=== PATIENT | female | born 1945 | race African-American/Black ===

== ENCOUNTER 2020-01-11 23:04 | Inpatient (IN) | payer MEDICARE, OTHER ==
[~2020-01-11] VITALS: Ht 154.9 cm; Wt 69.9 kg
[2020-01-11] MEDS ORDERED: SODIUM CHLORIDE 0.9% 500 ML IV ONE (23:15)
[2020-01-11] MEDS ORDERED: IOHEXOL-300 100 ML BOTTLE ONE (23:31)
[2020-01-12] MEDS ORDERED: ASPIRIN 325MG TABLET PO ONE (00:15)
[2020-01-12 00:29] LABS: PROTHROMBIN TIME 10.4 sec (9.6-11.0)
[2020-01-12] MEDS ORDERED: ASPIRIN 81MG TABLET PO ONE (00:30)
[2020-01-12 00:31] LABS: BASOPHILS % 0.3 % (0.0-2.0); EOSINOPHILS % 1.4 % (0.0-5.0); HEMATOCRIT. 38.5 % (36.0-48.0); HEMOGLOBIN. 12.9 g/dL (12.0-16.0); LYMPHOCYTES % 19.8 % (20.0-50.0); MEAN CORPUSCULAR HEMOGLOBIN 29.4 pg (28.0-32.0); MEAN CORPUSCULAR VOLUME 87.9 fL (81.0-99.0); MEAN PLATELET VOLUME 8.9 fl (7.4-10.4); MONOCYTES % 7.3 % (2.0-8.0); NEUTROPHILS % 71.2 % (40.0-76.0); PLATELET 230 x1000/uL (130-400); RED BLOOD CELL COUNT 4.39 mill/uL (4.2-5.4); RED CELL DISTRIBUTION WIDTH 14.5 % (11.6-14.6)
[2020-01-12 00:34] LABS: CHLORIDE 108 mEq/L (98-107)
[2020-01-12 02:00] LABS: CLARITY URINE CLEAR (CLEAR); COLOR URINE YELLOW (YELLOW); KETONES URINE NEGATIVE (NEGATIVE); LEUKOCYTE ESTERASE URINE 1+ (NEGATIVE); NITRITE URINE NEGATIVE (NEGATIVE); OCCULT BLOOD URINE NEGATIVE (NEGATIVE); PH URINE 7.5 (4.5-8.0); PROTEIN URINE NEGATIVE (NEGATIVE); SPECIFIC GRAVITY URINE 1.008 (1.005-1.030); UROBILINOGEN URINE 0.2 E.U./dL (0.2-1.0)
[2020-01-12] MEDS: BLOOD SUGAR DIAGNOSTIC STRIP TEST SCH ×2 (06:22→20:18)
[2020-01-12] MEDS ORDERED: ACETAMINOPHEN 650MG/20.3ML UDC GT PRN ×2 (09:45)
[2020-01-12] MEDS ORDERED: HYDROCODONE/ACETAMINOPHEN 5/325MG TABLET PO PRN (09:45)
[2020-01-12] MEDS ORDERED: DOCUSATE SODIUM 100MG CAPSULE PO PRN (09:45)
[2020-01-12] MEDS ORDERED: NA PHOS,M-B/NA PHOS,DI-BA ENEMA 118ML PR PRN (09:45)
[2020-01-12] MEDS ORDERED: ONDANSETRON HCL 4MG/2ML INJ IV PRN (09:45)
[2020-01-12] MEDS ORDERED: GUAIFENESIN 200MG/10ML SUGAR FREE UDC PO PRN (09:45)
[2020-01-12] MEDS ORDERED: ACETAMINOPHEN 650MG SUPP PR PRN (09:45)
[2020-01-12] MEDS ORDERED: ACETAMINOPHEN 325MG TABLET PO PRN ×2 (09:45)
[2020-01-12] MEDS ORDERED: MAGNESIUM/ALUMINUM HYDROXIDE/SIMETHICONE 30ML UDC PO PRN (09:45)
[2020-01-12] MEDS ORDERED: ASPIRIN 81MG TABLET PO SCH (10:00)
[2020-01-12] MEDS ORDERED: PHENYTOIN SODIUM EXTENDED 100MG CAPSULE PO NR (10:15)
[2020-01-12] MEDS ORDERED: DEXTROSE 50% WATER 50ML SYRINGE IV PRN (17:00)
[2020-01-12 19:24] LABS: BASOPHILS % 0.7 % (0.0-2.0); HEMATOCRIT. 40.4 % (36.0-48.0); HEMOGLOBIN. 13.5 g/dL (12.0-16.0); LYMPHOCYTES % 26.1 % (20.0-50.0); MEAN CORPUSCULAR HEMOGLOBIN 29.3 pg (28.0-32.0); MEAN CORPUSCULAR VOLUME 88.1 fL (81.0-99.0); MEAN PLATELET VOLUME 8.9 fl (7.4-10.4); MONOCYTES % 8.1 % (2.0-8.0); NEUTROPHILS % 63.1 % (40.0-76.0); PLATELET 227 x1000/uL (130-400); RED BLOOD CELL COUNT 4.59 mill/uL (4.2-5.4); RED CELL DISTRIBUTION WIDTH 14.4 % (11.6-14.6)
[2020-01-12 19:29] LABS: CHLORIDE 112 mEq/L (98-107)
[2020-01-12 19:35] LABS: PHOSPHORUS 2.2 mg/dL (2.5-4.9)
[2020-01-12 19:36] LABS: CREATINE KINASE 73 IU/L (26-192); CREATINE KINASE MB FRACTION < 1.0 ng/mL (0.5-3.6)
[2020-01-12 20:17] LABS: *AMPHETAMINES SCREEN URINE NEGATIVE (NEGATIVE); *BARBITURATES SCREEN URINE NEGATIVE (NEGATIVE); *BENZODIAZEPINES SCREEN URINE NEGATIVE (NEGATIVE)
[2020-01-12 20:18] LABS: *COCAINE SCREEN URINE NEGATIVE (NEGATIVE); CANNABINOID URINE SCREEN NEGATIVE (NEGATIVE); METHADONE URINE SCREEN NEGATIVE (NEGATIVE); OPIATES URINE SCREEN NEGATIVE (NEGATIVE); PHENCYCLIDINE URINE SCREEN NEGATIVE (NEGATIVE)
[2020-01-12] MEDS: PHENYTOIN SODIUM EXTENDED 100MG CAPSULE PO SCH (23:43)
[2020-01-13 01:13] VITALS: BP 148/65
[2020-01-13 01:15] LABS: CREATINE KINASE 98 IU/L (26-192)
[2020-01-13 01:20] LABS: CREATINE KINASE MB FRACTION < 1.0 ng/mL (0.5-3.6)
[2020-01-13] MEDS ORDERED: CALC-3 PO (03:51)
[2020-01-13] MEDS ORDERED: ASPI-1497 PO (03:51)
[2020-01-13] MEDS ORDERED: PHEN300C6 PO (03:51)
[2020-01-13] MEDS ORDERED: DICL50TA9 PO (03:51)
[2020-01-13 04:00] VITALS: BP 123/60
[2020-01-13 05:45] LABS: BASOPHILS % 0.6 % (0.0-2.0); EOSINOPHILS % 2.7 % (0.0-5.0); HEMATOCRIT. 38.3 % (36.0-48.0); HEMOGLOBIN. 12.8 g/dL (12.0-16.0); LYMPHOCYTES % 33.8 % (20.0-50.0); MEAN CORPUSCULAR HEMOGLOBIN 29.1 pg (28.0-32.0); MEAN CORPUSCULAR VOLUME 87.3 fL (81.0-99.0); MEAN PLATELET VOLUME 9.1 fl (7.4-10.4); MONOCYTES % 9.8 % (2.0-8.0); NEUTROPHILS % 53.1 % (40.0-76.0); PLATELET 230 x1000/uL (130-400); RED BLOOD CELL COUNT 4.39 mill/uL (4.2-5.4); RED CELL DISTRIBUTION WIDTH 14.7 % (11.6-14.6)
[2020-01-13 06:19] LABS: CHLORIDE 111 mEq/L (98-107)
[2020-01-13] MEDS: PHENYTOIN SODIUM EXTENDED 100MG CAPSULE PO SCH ×3 (06:22→21:09)
[2020-01-13 06:27] LABS: LDL CHOLESTEROL 153 mg/dL (5-100)
[2020-01-13 06:31] LABS: HDL CHOLESTEROL 85 mg/dL (40-59)
[2020-01-13] MEDS: BLOOD SUGAR DIAGNOSTIC STRIP TEST SCH ×4 (06:44→21:09)
[2020-01-13 08:00] VITALS: BP 131/57
[2020-01-13] MEDS: ASPIRIN 81MG TABLET PO SCH (09:26)
[2020-01-13 12:00] VITALS: BP 127/59
[2020-01-13 16:00] VITALS: BP 118/54
[2020-01-13 20:00] VITALS: BP 134/49
[2020-01-13] MEDS ORDERED: ATORVASTATIN CALCIUM 20MG TABLET PO SCH (21:00)
[2020-01-14] VITALS: BP 155/55
[2020-01-14 04:00] VITALS: BP 135/59
[2020-01-14] MEDS: BLOOD SUGAR DIAGNOSTIC STRIP TEST SCH ×3 (05:56→16:45)
[2020-01-14] MEDS: PHENYTOIN SODIUM EXTENDED 100MG CAPSULE PO SCH ×2 (05:57→13:39)
[2020-01-14 08:00] VITALS: BP 133/70
[2020-01-14] MEDS: ASPIRIN 81MG TABLET PO SCH (08:43)
[2020-01-14 12:00] VITALS: BP 126/54
[2020-01-14] MEDS ORDERED: ATOR20TA PO (12:30)
[2020-01-14 16:00] VITALS: BP 144/61
[2020-01-14 17:16] VITALS: BP 125/89
== END 2020-01-14 18:05 | disposition home or self-care (01) | DRG 100 ==
LOC: ER 23:04 → MICUSO 01-12 00:52 → 5WST 01-13 00:05
PROVIDERS: ADMIT Family Medicine; ATTEND Family Medicine
DX: G40.909 Epilepsy, unspecified, not intractable, without status epilepticus (principal); G93.41 Metabolic encephalopathy; G45.9 Transient cerebral ischemic attack, unspecified; I10 Essential (primary) hypertension; E78.5 Hyperlipidemia, unspecified; Z88.5 Allergy status to narcotic agent; Z79.82 Long term (current) use of aspirin; Z79.899 Other long term (current) drug therapy
CPT/HCPCS: 36415; 70544; 70551; 71045; 80053; 80061; 80185; 80305; 81003; 82550; 82553; 82962; 83036; 83735; 83880; 84100; 84484; 85025; 93005; 93306; 93880; 97162; 97166; 99285; J7040; Q9967